=== PATIENT | female | born 1945 | race American Indian/Alaskan Native ===

== ENCOUNTER 2020-05-19 01:32 | Observation (INO) | payer MEDICARE ==
--- NOTE | 2020-05-19 02:35 | Emergency Department Report ---
HPI - HPI HPI: Room 19 The patient is a 74-year-old female present with a chief complaint of syncopal episode. The patient states she was in her bedroom thought herself that she needs to get up and go to the kitchen to get something to eat because she has not been eating much lately. Patient denies having any other preceding symptoms but states her next memory is waking up on the floor with right-sided facial pa in. Patient denies chest pain shortness of breath or dizziness. Patient now complains of right-sided facial pain. The patient states that her right foot has been numb for 1 week. Patient denies weakness. <TESS RUVALCABA - Last Filed: 05/19/20 06:14> <MARK KNOX - Last Filed: 05/19/20 15:33> - General Chief Complaint: Fall Time Seen by Provider: 05/19/20 01:59 ED Past Medical Hx - Past Medical History Hx Hypertension: Yes Hx of Cancer: Yes (Lung CA on immunotherapy) - Surgical History Past Surgical History?: No - Social History Smoking Status: Former Smoker Substance Use Type: Alcohol (Occasional) <TESS RUVALCABA - Last Filed: 05/19/20 06:14> ED Review of Systems ROS: Stated complaint: SYNCOPAL EPISODE FALL Other details as noted in HPI Constitutional: no symptoms reported ENT: other (Lip laceration) Respiratory: no symptoms reported Cardiovascular: denies: chest pain, palpitations Endocrine: no symptoms reported Gastrointestinal: denies: abdominal pain Musculoskeletal: denies: back pain Neurological: headache <TESS RUVALCABA - Last Filed: 05/19/20 06:14> ROS: Stated complaint: SYNCOPAL EPISODE FALL Other details as noted in HPI <MARK KNOX - Last Filed: 05/19/20 15:33> Physical Exam - Physical Exam Vital Signs: Vital Signs 05/19/20 02:15 Temperature 98.2 F Pulse Rate 91 H Respiratory 18 Rate Blood Pressure 174/94 O2 Sat by Pulse 94 Oximetry Physical Exam: GENERAL: The patient is well-developed well-nourished female lying on stretcher holding the right side of her head appearing to be in mild discomfort. [] HEENT: Normocephalic. Atraumatic. Extraocular motions are intact. Patient has moist mucous membranes. Right lateral upper lip laceration NECK: Supple. Trachea midline. No axial step-off CHEST/LUNGS: Clear to auscultation. There is no respiratory distress noted. HEART/CARDIOVASCULAR: Regular. There is no tachycardia. There is no gallop rub or murmur. 2+ right DP ABDOMEN: Abdomen is soft, nontender. Patient has normal bowel sounds. There is no abdominal distention. SKIN: There is no rash. There is no edema. There is no diaphoresis. NEURO: The patient is awake, alert, and oriented. The patient is cooperative. The patient has no focal neurologic deficits. The patient has normal speech MUSCULOSKELETAL: There is no evidence of acute injury. <TESS RUVALCABA - Last Filed: 05/19/20 06:14> - Physical Exam Vital Signs: Vital Signs 05/19/20 05/19/20 02:15 06:51 Temperature 98.2 F Pulse Rate 91 H 87 Respiratory 18 18 Rate Blood Pressure 174/94 Blood Pressure 160/85 [Right] O2 Sat by Pulse 94 98 Oximetry <MARK KNOX - Last Filed: 05/19/20 15:33> ED Course Vital Signs 05/19/20 02:15 Temperature 98.2 F Pulse Rate 91 H Respiratory 18 Rate Blood Pressure 174/94 O2 Sat by Pulse 94 Oximetry <TESS RUVALCABA - Last Filed: 05/19/20 06:14> Vital Signs 05/19/20 05/19/20 02:15 06:51 Temperature 98.2 F Pulse Rate 91 H 87 Respiratory 18 18 Rate Blood Pressure 174/94 Blood Pressure 160/85 [Right] O2 Sat by Pulse 94 98 Oximetry - Reevaluation(s) Reevaluation #1: 05/19/20 07:50 Elevated d-dimer is reviewed and appreciated. CT scan of the chest will be ordered. Hospital physician, Dr. Amalia العلي to admit for evaluation for complaint of syncope - Consultations Consultation #1: 05/19/20 09:55 CT scan of the chest is reviewed and appreciated. The patient did not complain of chest pain. I suspect that these are incidental findings. I contacted our vascular surgeon on-call, Dr. Myrna Juan, discussed the patient's history, physical, and pertinent imaging findings. Patient does not complain of chest pain, and has good pulses in the upper and lower extremities, there are no inflammatory changes documented on CT, the patient is resting comfortably in her stretcher at this time, and in no acute distress. We are both of the opinion that the patient could follow-up for this as an outpatient. The aforementioned vascular surgeon offers that his group could initially follow the patient up once discharged for her syncope, or she could follow-up at [facility] and/or [place] if she so desires for these incidental asymptomatic findings. <MARK KNOX - Last Filed: 05/19/20 15:33> - Laceration /Wound Repair Face Wound Location: mouth Wound Length (cm): 2 Wound's Depth, Shape: linear, irregular Wound Explored: clean Betadine Prep?: No Anesthesia: 1% Lidocaine Volume Anesthetic (ccs): 3 (Anesthetic with lidocaine 1% plain mixed with bupivacaine 0.25% in a 1: 1 ratio) Wound Repaired With: sutures Suture Size/Type: 4:0 Number of Sutures: 3 (Vicryl was used) <TESS RUVALCAAB - Last Filed: 05/19/20 06:14> ED Medical Decision Making - Lab Data Result diagrams: 05/19/20 02:38 05/19/20 02:38 - EKG Data -: EKG Interpreted by Ks EKG shows normal: sinus rhythm Rate: normal - EKG Data When compared to previous EKG there are: previous EKG unavailable Interpretation: nonspecific ST-T wave tres (T wave inversions in leads aVL, V2) - Radiology Data Radiology results: report reviewed (CT head, CT cervical spine, CT facial bones), image reviewed (CT head, CT cervical spine, CT facial bones) [address] [address] Cat Scan Report Signed Patient: GERRI CHRIS MR#: [id number] : 1945 Acct:[id number] Age/Sex: 74 / F ADM Date: 05/19/20 Loc: ED Attending Dr: Ordering Physician: TESS RUVALCABA MD Date of Service: 05/19/20 Procedure(s): CT cervical spine wo con Accession Number(s): [id number] cc: TESS RUVALCABA MD CT CERVICAL SPINE WO CON INDICATION / CLINICAL INFORMATION: Syncopal episode with neck pain. TECHNIQUE: All CT scans at this location are performed using CT dose reduction for ALARA by means of automated exposure control. COMPARISON: None available. FINDINGS: There is mild degenerative disc disease at C5-6. There are moderate hypertrophic changes involving the facet joints throughout the cervical spine bilaterally. There is no evidence of fracture or subluxation. I see no evidence of a focal disc herniation or epidural hematoma. The skull base is normal. There is groundglass opacity in the visualized upper lobes. IMPRESSION: 1. Spondylosis without acute osseous abnormality. 2. Nonspecific groundglass parenchymal disease in both upper lobes may be related to inflammation or edema. Signer Name: Jayden Colorado MD Signed: 05/19/2020 5:30 AM Workstation Name: [id number] Transcribed By: RT Dictated By: Jayden Colorado MD Electronically Authenticated By: Jayden Colorado MD Signed Date/Time: 05/19/20529 DD/ 6 TD/TT: [address] [address] Cat Scan Report Signed Patient: GERRI CHRIS MR#: [id number] : 1945 Acct:[id number] Age/Sex: 74 / F ADM Date: 05/19/20 Loc: ED Attending Dr: Ordering Physician: TESS RUVALCABA MD Date of Service: 05/19/20 Procedure(s): CT facial bones wo con Accession Number(s): [id number] cc: TESS RUVALCABA MD CT FACIAL BONES WO CON INDICATION / CLINICAL INFORMATION: Syncopal episode with right facial pain. TECHNIQUE: All CT scans at this location are performed using CT dose reduction for ALARA by means of automated exposure control. COMPARISON: None available. FINDINGS: I do not identify a facial bone fracture. The pa ranasal sinuses and mastoid air cells are clear. I do not identify a lens in the right globe. No other abnormality is seen. Signer Name: Jayden Colorado MD Signed: 05/19/2020 5:42 AM Workstation Name: [id number] Transcribed By: RT Dictated By: Jayden Colorado MD Electronically Authenticated By: Jayden Colorado MD Signed Date/Time: 05/19/20541 DD/ 9 TD/TT: [address] [place] [address] Cat Scan Report Signed Patient: GERRI CHRIS MR#: [id number] : 1945 Acct:[id number] Age/Sex: 74 / F ADM Date: 05/19/20 Loc: ED Attending Dr: Ordering Physician: TESS RUVALCABA MD Date of Service: 05/19/20 Procedure(s): CT head/brain wo con Accession Number(s): [id number] cc: TESS RUVALCABA MD CT HEAD/BRAIN WO CON INDICATION / CLINICAL INFORMATION: Syncopal episode. Right facial pain. TECHNIQUE: All CT scans at this location are performed using CT dose reduction for ALARA by means of automated exposure control. COMPARISON: None available. FINDINGS: The ventricular system is normal in size and configuration. There are mild small vessel ischemic changes in the periventricular white matter bilaterally. No focal lesion or mass effect is seen. There is no evidence of intracranial hemorrhage or major vessel occlusion. The calvarium is intact. The visualized paranasal sinuses and mastoid air cells are clear. IMPRESSION: No acute abnormality. Signer Name: Jayden Colorado MD Signed: 05/19/2020 5:27 AM Workstation Name: [id number] Transcribed By: RT Dictated By: Jayden Colorado MD Electronically Authenticated By: Jayden Colorado MD Signed Date/Time: 05/19/20526 DD/ 4 TD/TT: - Differential Diagnosis Syncope, dysrhythmia, ICH <TESS RUVALCABA - Last Filed: 05/19/20 06:14> - Lab Data Result diagrams: 05/19/20 02:38 05/19/20 02:38 Vital Signs 05/19/20 05/19/20 02:15 06:51 Temperature 98.2 F Pulse Rate 91 H 87 Respiratory 18 18 Rate Blood Pressure 174/94 Blood Pressure 160/85 [Right] O2 Sat by Pulse 94 98 Oximetry Lab Results 05/19/20 05/19/20 05/19/20 Range/Units 02:38 02:38 02:38 WBC 6.7 (4.5-11.0) K/mm3 RBC 4.34 (3.65-5.03) M/mm3 Hgb 14.1 (10.1-14.3) gm/dl Hct 39.3 (30.3-42.9) % MCV 91 (79-97) fl MCH 33 H (28-32) pg MCHC 36 H (30-34) % RDW 14.6 (13.2-15.2) % Plt Count 301 (140-440) K/mm3 Lymph % (Auto) 11.3 L (13.4-35.0) % [place] % (Auto) 5.5 (0.0-7.3) % Eos % (Auto) 0.9 (0.0-4.3) % Baso % (Auto) 0.6 (0.0-1.8) % Lymph # 0.8 L (1.2-5.4) K/mm3 [place] # 0.4 (0.0-0.8) K/mm3 Eos # 0.1 (0.0-0.4) K/mm3 Baso # 0.0 (0.0-0.1) K/mm3 Seg Neutrophils % 81.7 H (40.0-70.0) % Seg Neutrophils # 5.5 (1.8-7.7) K/mm3 PT 14.1 (12.2-14.9) Sec. INR 1.11 (0.87-1.13) APTT 27.9 (24.2-36.6) Sec. D-Dimer (0-234) ng/mlDDU Sodium 133 L (137-145) mmol/L Potassium 4.1 (3.6-5.0) mmol/L Chloride 99.5 (98-107) mmol/L Carbon Dioxide 20 L (22-30) mmol/L Anion Gap 18 mmol/L BUN 9 (7-17) mg/dL Creatinine 0.5 L (0.7-1.2) mg/dL Estimated GFR > 60 ml/min BUN/Creatinine Ratio 18 % Glucose 112 H (65-100) mg/dL Calcium 9.4 (8.4-10.2) mg/dL Total Bilirubin 0.40 (0.1-1.2) mg/dL AST 16 (5-40) units/L ALT 11 (7-56) units/L Alkaline Phosphatase 85 (35-129) units/L Total Creatine Kinase 82 (30-135) units/L CK-MB (CK-2) 2.9 (0.0-4.0) ng/mL CK-MB (CK-2) Rel Index 3.5 (0-4) Troponin T < 0.010 (0.00-0.029) ng/mL Total Protein 7.0 (6.3-8.2) g/dL Albumin 4.1 (3.9-5) g/dL Albumin/Globulin Ratio 1.4 % TSH (0.270-4.200) mlU/mL Free T4 (0.76-1.46) ng/dL Urine Color (Yellow) Urine Turbidity (Clear) Urine pH (5.0-7.0) Ur Specific [place] (1.003-1.030) Urine Protein (Negative) mg/dL Urine Glucose (UA) (Negative) mg/dL Urine Ketones (Negative) mg/dL Urine Blood (Negative) Urine Nitrite (Negative) Urine Bilirubin (Negative) Urine Urobilinogen (<2.0) mg/dL Ur Leukocyte Esterase (Negative) Urine WBC (Auto) (0.0-6.0) /HPF Urine RBC (Auto) (0.0-6.0) /HPF U Epithel Cells (Auto) (0-13.0) /HPF Urine Bacteria (Auto) (Negative) /HPF Urine Mucus /HPF Plasma/Serum Alcohol (0-0.07) % 05/19/20 05/19/20 05/19/20 Range/Units 02:38 02:38 02:38 WBC (4.5-11.0) K/mm3 RBC (3.65-5.03) M/mm3 Hgb (10.1-14.3) gm/dl Hct (30.3-42.9) % MCV (79-97) fl MCH (28-32) pg MCHC (30-34) % RDW (13.2-15.2) % Plt Count (140-440) K/mm3 Lymph % (Auto) (13.4-35.0) % [place] % (Auto) (0.0-7.3) % Eos % (Auto) (0.0-4.3) % Baso % (Auto) (0.0-1.8) % Lymph # (1.2-5.4) K/mm3 [place] # (0.0-0.8) K/mm3 Eos # (0.0-0.4) K/mm3 Baso # (0.0-0.1) K/mm3 Seg Neutrophils % (40.0-70.0) % Seg Neutrophils # (1.8-7.7) K/mm3 PT (12.2-14.9) Sec. INR (0.87-1.13) APTT (24.2-36.6) Sec. D-Dimer 375.51 H (0-234) ng/mlDDU Sodium (137-145) mmol/L Potassium (3.6-5.0) mmol/L Chloride (98-107) mmol/L Carbon Dioxide (22-30) mmol/L Anion Gap mmol/L BUN (7-17) mg/dL Creatinine (0.7-1.2) mg/dL Estimated GFR ml/min BUN/Creatinine Ratio % Glucose (65-100) mg/dL Calcium (8.4-10.2) mg/dL Total Bilirubin (0.1-1.2) mg/dL AST (5-40) units/L ALT (7-56) units/L Alkaline Phosphatase (35-129) units/L Total Creatine Kinase (30-135) units/L CK-MB (CK-2) (0.0-4.0) ng/mL CK-MB (CK-2) Rel Index (0-4) Troponin T (0.00-0.029) ng/mL Total Protein (6.3-8.2) g/dL Albumin (3.9-5) g/dL Albumin/Globulin Ratio % TSH 0.665 (0.270-4.200) mlU/mL Free T4 1.02 (0.76-1.46) ng/dL Urine Color (Yellow) Urine Turbidity (Clear) Urine pH (5.0-7.0) Ur Specific [place] (1.003-1.030) Urine Protein (Negative) mg/dL Urine Glucose (UA) (Negative) mg/dL Urine Ketones (Negative) mg/dL Urine Blood (Negative) Urine Nitrite (Negative) Urine Bilirubin (Negative) Urine Urobilinogen (<2.0) mg/dL Ur Leukocyte Esterase (Negative) Urine WBC (Auto) (0.0-6.0) /HPF Urine RBC (Auto) (0.0-6.0) /HPF U Epithel Cells (Auto) (0-13.0) /HPF Urine Bacteria (Auto) (Negative) /HPF Urine Mucus /HPF Plasma/Serum Alcohol < 0.01 (0-0.07) % // Range/Units 03:40 WBC (4.5-11.0) K/mm3 RBC (3.65-5.03) M/mm3 Hgb (10.1-14.3) gm/dl Hct (30.3-42.9) % MCV (79-97) fl MCH (28-32) pg MCHC (30-34) % RDW (13.2-15.2) % Plt Count (140-440) K/mm3 Lymph % (Auto) (13.4-35.0) % [place] % (Auto) (0.0-7.3) % Eos % (Auto) (0.0-4.3) % Baso % (Auto) (0.0-1.8) % Lymph # (1.2-5.4) K/mm3 [place] # (0.0-0.8) K/mm3 Eos # (0.0-0.4) K/mm3 Baso # (0.0-0.1) K/mm3 Seg Neutrophils % (40.0-70.0) % Seg Neutrophils # (1.8-7.7) K/mm3 PT (12.2-14.9) Sec. INR (0.87-1.13) APTT (24.2-36.6) Sec. D-Dimer (0-234) ng/mlDDU Sodium (137-145) mmol/L Potassium (3.6-5.0) mmol/L Chloride (98-107) mmol/L Carbon Dioxide (22-30) mmol/L Anion Gap mmol/L BUN (7-17) mg/dL Creatinine (0.7-1.2) mg/dL Estimated GFR ml/min BUN/Creatinine Ratio % Glucose (65-100) mg/dL Calcium (8.4-10.2) mg/dL Total Bilirubin (0.1-1.2) mg/dL AST (5-40) units/L ALT (7-56) units/L Alkaline Phosphatase (35-129) units/L Total Creatine Kinase (30-135) units/L CK-MB (CK-2) (0.0-4.0) ng/mL CK-MB (CK-2) Rel Index (0-4) Troponin T (0.00-0.029) ng/mL Total Protein (6.3-8.2) g/dL Albumin (3.9-5) g/dL Albumin/Globulin Ratio % TSH (0.270-4.200) mlU/mL Free T4 (0.76-1.46) ng/dL Urine Color Yellow (Yellow) Urine Turbidity Clear (Clear) Urine pH 5.0 (5.0-7.0) Ur Specific [place] 1.009 (1.003-1.030) Urine Protein <15 mg/dl (Negative) mg/dL Urine Glucose (UA) Neg (Negative) mg/dL Urine Ketones Tr (Negative) mg/dL Urine Blood Mod (Negative) Urine Nitrite Neg (Negative) Urine Bilirubin Neg (Negative) Urine Urobilinogen < 2.0 (<2.0) mg/dL Ur Leukocyte Esterase Neg (Negative) Urine WBC (Auto) 2.0 (0.0-6.0) /HPF Urine RBC (Auto) 4.0 (0.0-6.0) /HPF U Epithel Cells (Auto) 2.0 (0-13.0) /HPF Urine Bacteria (Auto) 1+ (Negative) /HPF Urine Mucus Few /HPF Plasma/Serum Alcohol (0-0.07) % - Radiology Data Print Report Referring Physician: MARK KNOX Patient Name: GERRI CHRIS Date of : 1945 Sex: Female Report Date: 2020-05-19 Report Status: Finalized Findings [facility] [address] [place] [address] Cat Scan Report Signed Patient: GERRI CHRIS MR#: [id number] : 1945 Acct:[id number] Age/Sex: 74 / F ADM Date: 05/19/20 Loc: 4A A477-[address]: IQRA العلي MD Ordering Physician: MARK KNOX MD Date of Service: 05/19/20 Procedure(s): CT angio chest Accession Number(s): [id number] cc: MARK KNOX MD CTA chest with contrast INDICATION : syncope lung cancer + d dimer. TECHNIQUE: Axial imaging performed through the chest, with contrast bolus timing set to maximize opacification of the pulmonary arteries. 3-plane MIP reformatted images were obtained. All CT scans at this location are performed using CT dose reduction for ALARA by means of automated exposure control. 100 mL of intravenous contrast administered. COMPARISON: None FINDINGS: Bolus: Contrast bolus timing is adequate. PTE: No filling defect is present to suggest PTE. Mediastinum: Normal heart size. There is moderate atherosclerotic disease in the thoracic aorta with mild disease in the coronary arteries. There is a focal area of atherosclerotic plaque ulceration as seen on images 51-52 of series #2 along the proximal descending thoracic aorta. The aorta measures 3.7 cm in this region. No pathologic mediastinal adenopathy. Lungs: There is streaky airspace disease primarily in the left lung with a rounded mass in the medial left upper lobe measuring 4.2 cm in maximal dimension and directly abutting the mediastinal pleura as seen on image 44 of series 2. There is adjacent patchy airspace disease, as well. No pleural effusion. Upper abdomen: Limited imaging of the upper abdomen shows nothing acute. There is mild bilateral adrenal thickening. Bones: Advanced degenerative changes are present throughout the spine with no acute osseous abnormality identified. IMPRESSION: 1. Negative for PTE. 2. Left upper lobe mass presumably representing the patient's reported lung cancer, with streaky airspace disease primarily in the left lung (mainly in the left upper lobe). 3. 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 COMMUNICATION: Time of Communication (CUPOLA CHARGER/CDT): 0863 Licensed Practitioner Receiving Report: Dr. Rae Signer Name: Jonathan Guzmán MD Signed: 05/19/2020 9:23 AM Workstation Name: [id number] Transcribed By: JW Dictated By: Jonathan Guzmán MD Electronically Authenticated By: Jonathan Guzmán MD Signed Date/Time: 05/19/20922 DD/ 2 TD/TT: <MARK KNOX - Last Filed: 05/19/20 15:33> Critical care attestation.: If time is entered above; I have spent that time in minutes in the direct care of this critically ill patient, excluding procedure time. <TESS RUVALCABA - Last Filed: 05/19/20 06:14> Critical care attestation.: If time is entered above; I have spent that time in minutes in the direct care of this critically ill patient, excluding procedure time. <MARK KNOX - Last Filed: 05/19/20 15:33> ED Disposition <TESS RUVALCABA - Last Filed: 05/19/20 06:14> Is pt being admited?: Yes Does the pt Need Aspirin: No <MARK KNOX - Last Filed: 05/19/20 15:33> Clinical Impression: Syncope Disposition: DC-09 OP ADMIT IP TO THIS HOSP Condition: Good
[2020-05-19 03:05] LABS: Basophils % (Auto) 0.6 % (0.0-1.8); Eosinophils # (Auto) 0.1 K/mm3 (0.0-0.4); Eosinophils % (Auto) 0.9 % (0.0-4.3); Lymphocytes # (Auto) 0.8 K/mm3 (1.2-5.4); Lymphocytes % (Auto) 11.3 % (13.4-35.0); Mean Corpuscular HGB Conc 36 % (30-34); Mean Corpuscular Volume 91 fl (79-97); Monocytes # (Auto) 0.4 K/mm3 (0.0-0.8); Monocytes % (Auto) 5.5 % (0.0-7.3); Platelet Count 301 K/mm3 (140-440); Red Blood Count 4.34 M/mm3 (3.65-5.03); Red Cell Distribution Width 14.6 % (13.2-15.2)
[2020-05-19 03:14] LABS: Hemoglobin 14.1 gm/dl (10.1-14.3)
[2020-05-19 03:15] LABS: Hematocrit 39.3 % (30.3-42.9)
[2020-05-19 03:18] LABS: INR 1.11 (0.87-1.13); Partial Thromboplastin Time 27.9 Sec. (24.2-36.6)
[2020-05-19 03:23] LABS: Creatine Kinase MB 2.9 ng/mL (0.0-4.0)
[2020-05-19 03:25] LABS: Alanine Aminotransferase 11 units/L (7-56); Albumin 4.1 g/dL (3.9-5); BUN/Creatinine Ratio 18; Blood Urea Nitrogen 9 mg/dL (7-17); Calcium 9.4 mg/dL (8.4-10.2); Hemolysis Index 8
[2020-05-19] MEDS ORDERED: fentaNYL 100 MCG/2 ML INJ IV ONE (04:11)
[2020-05-19] MEDS ORDERED: ONDANSETRON 4 MG/2 ML INJ IV ONE (04:11)
[2020-05-19 04:20] LABS: Free T4 (Free Thyroxine) 1.02 ng/dL (0.76-1.46)
[2020-05-19 04:36] LABS: Bacteria,Urine 1+ /HPF (Negative); Bilirubin,Urine NEG (Negative); Blood,Urine MOD (Negative); Color,Urine Yellow (Yellow); Mucus,Urine FEW /HPF; Protein,Urine <15 mg/dL mg/dL (Negative); Urobilinogen,Urine < 2.0 mg/dL (<2.0)
[2020-05-19] MEDS ORDERED: BUPIVACAINE/PF (0.25%) 2.5 MG/ML 10 ML VIAL INFILTRATI ONE ×2 (05:05→05:13)
[2020-05-19] MEDS ORDERED: LIDOCAINE (1%) 10 MG/1 ML VIAL 20 ML MDV INFILTRATI ONE (05:05)
--- NOTE | 2020-05-19 05:31 | Cat Scan Report ---
CT HEAD/BRAIN WO CON INDICATION / CLINICAL INFORMATION: Syncopal episode. Right facial pain. TECHNIQUE: All CT scans at this location are performed using CT dose reduction for ALARA by means of automated e xposure control. COMPARISON: None available. FINDINGS: The ventricular system is normal in size and configuration. There are mild small vessel ischemic medina ges in the periventricular white matter bilaterally. No focal lesion or mass effect is seen. There is no evidence of intracranial hemorrhage or major vessel occlusion. The calvarium is intact. The visualized paranasal sinuses and mastoid air cells are clear. IMPRESSION: No acute abnormality. Signer Name: Jayden Colorado MD Signed: 05/19/2020 5:27 AM Workstation Name: [id number]
--- NOTE | 2020-05-19 05:34 | Cat Scan Report ---
CT CERVICAL SPINE WO CON INDICATION / CLINICAL INFORMATION: Syncopal episode with neck pain. TECHNIQUE: All CT scans at this location are performed using CT dose reduction for ALARA by means of automated e xposure control. COMPARISON: None available. FINDINGS: There is mild degenerative disc disease at C5-6. There are moderate hypertrophic changes involving th e facet joints throughout the cervical spine bilaterally. There is no evidence of fracture or subluxa tion. I see no evidence of a focal disc herniation or epidural hematoma. The skull base is normal. There is groundglass opacity in the visualized upper lobes. IMPRESSION: 1. Spondylosis without acute osseous abnormality. 2. Nonspecific groundglass parenchymal disease in both upper lobes may be related to inflammation or edema. Signer Name: Jayden Colorado MD Signed: 05/19/2020 5:30 AM Workstation Name: [id number]
[2020-05-19] MEDS ORDERED: HYDROGEN PEROXIDE 118 ML SOLUTION ONE (05:35)
--- NOTE | 2020-05-19 05:47 | Cat Scan Report ---
CT FACIAL BONES WO CON INDICATION / CLINICAL INFORMATION: Syncopal episode with right facial pain. TECHNIQUE: All CT scans at this location are performed using CT dose reduction for ALARA by means of automated e xposure control. COMPARISON: None available. FINDINGS: I do not identify a facial bone fracture. The paranasal sinuses and mastoid air cells are clear. I do not identify a lens in the right globe. No other abnormality is seen. Signer Name: Jayden Colorado MD Signed: 05/19/2020 5:42 AM Workstation Name: [id number]
--- NOTE | 2020-05-19 06:37 | XRay Report ---
CHEST 1 VIEW 6:12 AM INDICATION / CLINICAL INFORMATION: Cough and history of lung cancer. COMPARISON: None available. FINDINGS: SUPPORT DEVICES: The patient's brassiere was left in place. HEART / MEDIASTINUM: The heart size and pulmonary vasculature are normal. LUNGS / PLEURA: There is localized parenchymal opacity in the left perihilar region. The right lung i s clear. No pneumothorax. ADDITIONAL FINDINGS: The left hemidiaphragm is mildly elevated. IMPRESSION: Localized parenchymal disease in the left lung is nonspecific and may be related to pneum onia, aspiration or neoplasm. Signer Name: Jayden Colorado MD Signed: 05/19/2020 6:32 AM Workstation Name: [email or web address][id number]
[2020-05-19] MEDS ORDERED: SODIUM CHLORIDE 0.9% 500 ML 500 ML IV ONE (07:49)
[2020-05-19] MEDS ORDERED: hydrALAZINE 20 MG/1 ML INJ IV PRN (09:18)
[2020-05-19] MEDS ORDERED: ACETAMINOPHEN 325 MG TAB PO PRN (09:18)
[2020-05-19] MEDS ORDERED: ONDANSETRON 4 MG/2 ML INJ IV PRN (09:18)
--- NOTE | 2020-05-19 09:21 | History and Physical Report ---
History of Present Illness Date of examination: 05/19/20 Date of admission: 05/19/20 Chief complaint: Syncope History of present illness: The patient is a 74-year-old female present with a chief complaint of syncopal episode. The patient states she was in her bedroom thought herself that she needs to get up and go to the kitchen to get something to eat because she has not been eating much lately. Patient denies having any other preceding symptoms but states her next memory is waking up on the floor with right-sided facial pain. Patient denies chest pain shortness of breath or dizziness. Patient now complains of right-sided facial pain. The patient states that her right foot has been numb for 1 week. Patient denies weakness. Past medical history: - Past Medical History Hx Hypertension: Yes Hx of Cancer: Yes (Lung CA on immunotherapy) - family history Hx Hypertension: Yes - Surgical History Past Surgical History?: No - Social History Smoking Status: Former Smoker Substance Use Type: Alcohol (Occasional) Review of System: Constitutional: no fever, no chills, no weight loss Ears, eyes, nose, mouth and throat: no nasal congestion, no nasal discharge, no sinus pressure, no vision change, no red eye. Neck: No neck pain or rigidity. Cardiovascular: No chest pain, no orthopnea, no palpitations, no leg swelling Respiratory: No shortness of breath, no cough, no congestion, no wheezing Gastrointestinal: no abdominal pain, no nausea, no vomiting Genitourinary : no dysuria, no hematuria Musculoskeletal: no joint swelling or muscle ache Integumentary: no rash, no pruritis Neurological: no parathesias, no numbness, no tingling Endocrine: no cold or heat intolerance, no polyuria or polydipsia Hematologic/Lymphatic: no easy bruising, no easy bleeding, no gland swelling Allergic/Immunologic: no urticaria, no angioedema. Medications and Allergies Allergies Allergy/AdvReac Type Severity Reaction Status Date / Time Penicillins Allergy Unknown Verified 05/19/20 03:54 Exam - Physical Exam Narrative exam: GENERAL: well-developed and well-nourished lying on bed appeared to be in no discomfort. HEENT: Normocephalic. Atraumatic. No conjunctival congestion or icterus. Patient has moist mucous membranes. NECK: Supple. Trachea midline. CHEST/LUNGS: Clear to auscultated bilaterally, breathing nonlabored. No wheezes crackles or rhonchi. HEART/CARDIOVASCULAR: Regular in rate and rhythm. S1 and S2 positive. ABDOMEN: Abdomen is soft, nontender. Patient has normal bowel sounds. SKIN: There is no rash. Warm and dry. NEURO: No focal motor deficit. Follows command. MUSCULOSKELETAL: No joint effusion or tenderness. EXTRIMITY: No edema, no cyanosis or clubbing. PSYCH: Cooperative. - Constitutional Vitals: Temp Pulse Resp BP Pulse Ox 98.2 F 87 18 160/85 98 05/19/20 02:15 05/19/20 06:51 05/19/20 06:51 05/19/20 06:51 05/19/20 06:51 HEART Score - HEART Score Troponin: Troponin T < 0.010 ng/mL (0.00-0.029) 05/19/20 02:38 Results - Labs CBC & Chem 7: 05/19/20 02:38 05/19/20 02:38 Labs: Abnormal lab results 05/19/20 05/19/20 05/19/20 Range/Units 02:38 02:38 02:38 MCH 33 H (28-32) pg MCHC 36 H (30-34) % Lymph % (Auto) 11.3 L (13.4-35.0) % Lymph # 0.8 L (1.2-5.4) K/mm3 Seg Neutrophils % 81.7 H (40.0-70.0) % D-Dimer 375.51 H (0-234) ng/mlDDU Sodium 133 L (137-145) mmol/L Carbon Dioxide 20 L (22-30) mmol/L Creatinine 0.5 L (0.7-1.2) mg/dL Glucose 112 H (65-100) mg/dL Assessment and Plan Syncope Lung cancer HTN DVt Px
--- NOTE | 2020-05-19 09:27 | Cat Scan Report ---
CTA chest with contrast INDICATION : syncope lung cancer + d dimer. TECHNIQUE: Axial imaging performed through the chest, with contrast bolus timing set to maximize opa cification of the pulmonary arteries. 3-plane MIP reformatted images were obtained. All CT scans at this location are performed using CT dose reduction for ALARA by means of automated exposure control. 100 mL of intravenous contrast administered. COMPARISON: None FINDINGS: Bolus: Contrast bolus timing is adequate. PTE: No filling defect is present to suggest PTE. Mediastinum: Normal heart size. There is moderate atherosclerotic disease in the thoracic aorta with mild disease in the coronary arteries. There is a focal area of atherosclerotic plaque ulceration as seen on images 51-52 of series #2 along the proximal descending thoracic aorta. The aorta measures 3 .7 cm in this region. No pathologic mediastinal adenopathy. Lungs: There is streaky airspace disease primarily in the left lung with a rounded mass in the media l left upper lobe measuring 4.2 cm in maximal dimension and directly abutting the mediastinal pleura as seen on image 44 of series 2. There is adjacent patchy airspace disease, as well. No pleural effus ion. Upper abdomen: Limited imaging of the upper abdomen shows nothing acute. There is mild bilateral ad renal thickening. Bones: Advanced degenerative changes are present throughout the spine with no acute osseous abnormal ity identified. IMPRESSION: 1. Negative for PTE. 2. Left upper lobe mass presumably representing the patient's reported lung cancer, with streaky airs pace disease primarily in the left lung (mainly in the left upper lobe). 3. Mild aneurysmal dilatation of the descending thoracic aorta measuring 3.7 cm with a very focal are a of plaque ulceration as referenced. COMMUNICATION: Time of Communication ([employer]/CDT): 0390 Licensed Practitioner Receiving Report: Dr. Rae Signer Name: Jonathan Guzmán MD Signed: 05/19/2020 9:23 AM Workstation Name: [email or web address]
[2020-05-19] MEDS ORDERED: SODIUM CHLORIDE 0.9% 1000 ML 1,000 ML IV SCH (09:30)
[2020-05-19] MEDS: HYDROcodone/ACETAMINOPHEN 5-325 MG TAB PO PRN ×3 (09:39→22:36)
[2020-05-19] MEDS ORDERED: HYDROcodone/ACETAMINOPHEN 5-325 MG TAB ONE ×2 (09:39→09:51)
[2020-05-19] MEDS ORDERED: ENOXAPARIN 60 MG/0.6 ML INJ SUB-Q SCH (10:00)
--- NOTE | 2020-05-19 12:45 | Magnetic Resonance Report ---
NONENHANCED AND CONTRAST-ENHANCED MR SCAN OF THE BRAIN: INDICATION / CLINICAL INFORMATION: History given for the CT scan "syncope; right facial pain TECHNIQUE: Multiplanar, multisequence MR images of the brain obtained. COMPARISON: CT scan obtained earlier today FINDINGS: BRAIN / INTRACRANIAL CONTENTS: No acute ischemia, acute hemorrhage, mass effect, midline shift, or hy drocephalus. No chronic infarct or atrophy. Confluent patchy white matter hyperintensities seen abov e the atria of the lateral ventricles. Deep hemispheric white matter lesions ([place] 1) seen probabl y due to chronic small vessel disease. Moderate cortical involution: Normal hippocampi No enhancing parenchymal or meningeal lesions. CRANIOCERVICAL JUNCTION: No significant abnormality. VASCULAR FLOW-VOIDS: No significant abnormality. ORBITS: No significant abnormality of visualized orbits. SINUSES / MASTOIDS: No significant abnormality of visualized sinuses and mastoid air cells. ADDITIONAL FINDINGS: None. IMPRESSION: 1. No acute focal parenchymal lesion in the brain Signer Name: Neva Wilson MD Signed: 05/19/2020 12:40 PM Workstation Name: [id number]
[2020-05-19] MEDS: ENOXAPARIN 40 MG/0.4 ML INJ SUB-Q SCH ×2 (14:16→14:21)
[2020-05-19] MEDS: FAMOTIDINE 10 MG TAB PO SCH ×2 (14:16→22:37)
[2020-05-19] MEDS: DOCUSATE SODIUM 100 MG CAP PO SCH ×2 (14:18→22:37)
[2020-05-19] MEDS: amLODIPine 10 MG TAB PO SCH (14:18)
[2020-05-19] MEDS: ZOLPIDEM 5 MG TAB PO PRN (22:37)
--- NOTE | 2020-05-20 10:12 | Consultation ---
History of Present Illness Consult date: 05/20/20 Consult reason: syncope History of present illness: 74-year old woman admitted with syncope. Patient reports lack of appetite and feeling fatigue over the last few days. She stood up from her bed to go to the kitchen, when she came to herself she was on the floor, lying between the bed and the dresser with right facial pain and lacerations. Patient denies chest pain and palpitations. Denies dizziness and unusual shortness of breath just prior to passing out or when she came to herself. EMS was called and the patient was brought in for evaluation. Patient gives a history of Lung Cancer and Hypertension. No prior cardiac history. No history of Seizure disorder. Initial labs shows a normal TSH. Chest CTA scan reports a low probability for PE. Her ECG is benign, normal sinus rhythm. No acut ST or Twave changes. Medications and Allergies Allergies Allergy/AdvReac Type Severity Reaction Status Date / Time Penicillins Allergy Unknown Verified 05/19/20 03:54 Active Meds: Active Medications Acetaminophen (Tylenol) 650 mg PO Q4H PRN PRN Reason: Pain MILD(1-3)/Fever >100.5/NUNEZ Acetaminophen/Hydrocodone Bitart ([place] 5/325) 2 each PO Q6H PRN PRN Reason: Pain, Moderate (4-6) Last Admin: 05/19/20 22:36 Dose: 2 each Documented by: Amlodipine Besylate (Amlodipine) 10 mg PO QDAY [facility] Last Admin: 05/19/20 14:18 Dose: 10 mg Documented by: Docusate Sodium (Colace) 100 mg PO BID [facility] Last Admin: 05/19/20 22:37 Dose: 100 mg Documented by: Enoxaparin Sodium (Enoxaparin) 40 mg SUB-Q QDAY [facility] Last Admin: 05/19/20 14:21 Dose: Not Given Documented by: Famotidine (Pepcid) 10 mg PO BID [facility] Last Admin: 05/19/20 22:37 Dose: 10 mg Documented by: Hydralazine HCl (Apresoline) 5 mg IV Q30MIN PRN PRN Reason: Hypertension Sodium Chloride (Nacl 0.9% 1000 Ml) 1,000 mls @ 100 mls/hr IV DIRECT [facility] Ondansetron HCl (Zofran) 4 mg IV Q8H PRN PRN Reason: N/V unrelieved by Laura Zolpidem Tartrate (Ambien) 10 mg PO QHS PRN PRN Reason: Sleep Last Admin: 05/19/20 22:37 Dose: 10 mg Documented by: Physical Examination Vital Signs Temp Pulse Resp BP Pulse Ox 98.2 F 91 H 18 174/94 94 05/19/20 02:15 05/19/20 02:15 05/19/20 02:15 05/19/20 02:15 05/19/20 02:15 General appearance: no acute distress HEENT: Positive: PERRL Neck: Positive: trachea midline Cardiac: Positive: Reg Rate and Rhythm Lungs: Positive: Decreased Breath Sounds Results 05/19/20 02:38 05/19/20 02:38 Assessment and Plan - Patient Problems (1) Syncope Current Visit: Yes Status: Acute
[2020-05-20] MEDS: FAMOTIDINE 10 MG TAB PO SCH ×2 (10:38→22:40)
[2020-05-20] MEDS: DOCUSATE SODIUM 100 MG CAP PO SCH ×2 (10:38→22:40)
[2020-05-20] MEDS: amLODIPine 10 MG TAB PO SCH (10:38)
[2020-05-20] MEDS: HYDROcodone/ACETAMINOPHEN 5-325 MG TAB PO PRN ×3 (10:38→22:40)
[2020-05-20] MEDS: ENOXAPARIN 40 MG/0.4 ML INJ SUB-Q SCH ×2 (10:39→10:45)
--- NOTE | 2020-05-20 16:15 | Progress Note ---
Assessment and Plan Syncope -Likely vasovagal, CT head and MRI brain is negative for any acute findings -Cardiology consulted, 2D echo pending, plan for stress test tomorrow -Normal orthostatic vitals Lung cancer -Patient in remission, will continue follow-up outpatient -CTA chest showed no PE HTN, stable, -Continue home meds DVt Px, Lovenox 05/20: Cardiology recommended stress test for tomorrow, keep n.p.o. after midnight. If stress test unremarkable possible discharge tomorrow after stress test. Subjective Date of service: 05/20/20 Objective - Constitutional Vitals: Vital Signs - 12hr 05/20/20 05/20/20 05/20/20 07:10 11:37 15:55 Temperature 98.6 F 98.2 F 98.0 F Pulse Rate 68 61 Respiratory 18 18 18 Rate Blood Pressure 140/61 Blood Pressure 133/64 131/62 [Right] O2 Sat by Pulse 100 100 Oximetry - Labs CBC & Chem 7: 05/19/20 02:38 05/19/20 02:38 HEART Score - HEART Score Troponin: Troponin T < 0.010 ng/mL (0.00-0.029) 05/19/20 02:38
[2020-05-20] MEDS: ZOLPIDEM 5 MG TAB PO PRN (22:41)
[2020-05-21] MEDS ORDERED: REGADENOSON 0.4 MG/5 ML INJ IV ONE ×2 (08:47→10:35)
[2020-05-21 12:23] VITALS: BP 125/65
--- NOTE | 2020-05-21 12:41 | Event Note ---
Date: 05/21/20 Patient underwent a Lexiscan thallium stress test, results are pending. Cardiac status is stable and asymptomatic.
[2020-05-21] MEDS: HYDROcodone/ACETAMINOPHEN 5-325 MG TAB PO PRN (12:55)
[2020-05-21] MEDS: FAMOTIDINE 10 MG TAB PO SCH (13:01)
[2020-05-21] MEDS: amLODIPine 10 MG TAB PO SCH ×2 (13:01→13:27)
[2020-05-21] MEDS: ENOXAPARIN 40 MG/0.4 ML INJ SUB-Q SCH (13:01)
[2020-05-21] MEDS: DOCUSATE SODIUM 100 MG CAP PO SCH (13:01)
--- NOTE | 2020-05-21 15:08 | Discharge Summary ---
Providers - Providers Date of Admission: 05/19/20 07:50 Date of discharge: 05/21/20 Attending physician: IQRA العلي 05/19/20 17:06 Consult to Physician [CONS] Routine Comment: Consulting Provider: DEBRA HAIDER Physician Instructions: Reason For Exam: syncope Primary care physician: IMMUNOHEMATOLOGIST Hospitalization Condition: Good Disposition: DC-01 TO HOME OR SELFCARE Time spent for discharge: 34 minutes Core Measure Documentation - Palliative Care Palliative Care/ Comfort Measures: Not Applicable - Core Measures Any of the following diagnoses?: none Exam - Constitutional Vitals: Temp Pulse Resp BP Pulse Ox 98.1 F 84 18 125/65 98 05/21/20 08:46 05/21/20 08:46 05/21/20 08:46 05/21/20 10:38 05/21/20 08:46 Plan Activity: advance as tolerated Weight Bearing Status: Non-Weight Bearing Diet: low fat Follow up with: PRIMARY CARE, [Primary Care Provider] - 3-5 Days Prescriptions: amLODIPine 10 mg PO QDAY #30 tablet Aspirin EC [Halfprin EC] 81 mg PO QDAY #30 tablet.
--- NOTE | 2020-05-21 20:04 | Treadmill Report ---
THALLIUM STRESS TEST REPORT LEFT VENTRICLE: Left ventricular chamber size is within normal spread. Perfusion study demonstrates homogeneous uptake of the tracer in all segments, no significant defects identified. Mild breast attenuation artifact is noted. Gated analysis demonstrates normal left ventricular systolic function, ejection fraction 62%. CONCLUSION: Normal myocardial perfusion study. JOB# [id number] CA/NTS
== END 2020-05-21 16:07 | disposition home or self-care (01) ==
LOC: ED 01:32 → 4A 07:50
PROVIDERS: ADMIT Internal Medicine; ATTEND Internal Medicine
DX: R55 Syncope and collapse (principal); C34.90 Malignant neoplasm of unspecified part of unspecified bronchus or lung; I10 Essential (primary) hypertension; Z87.891 Personal history of nicotine dependence; Z71.6 Tobacco abuse counseling; Z79.899 Other long term (current) drug therapy; Z88.0 Allergy status to penicillin
CPT/HCPCS: 36415; 70450; 70486; 70553; 71045; 71275; 72125; 78452; 80053; 81001; 82550; 82553; 84439; 84443; 84484; 85025; 85379; 85610; 85730; 93005; 93017; 93306; 96374; 96375; 99285; 99406; A9502; A9577; G0378; J2405; J2785; J3010; Q9967; 80320; G0480; J1650